=== PATIENT | female | born 1955 | race Caucasian/White ===

== ENCOUNTER 2022-01-18 11:30 | Emergency (ER) | payer OTHER ==
[~2022-01-18] VITALS: Ht 162.6 cm; Wt 81.6 kg
[2022-01-18 11:31] VITALS: BP 142/88
[2022-01-18] MEDS ORDERED: IBUP-1493 PO (12:19)
== END 2022-01-18 13:03 | disposition home or self-care (01) ==
LOC: EDH 11:30
DX: M25.561 Pain in right knee (principal); I10 Essential (primary) hypertension; J44.9 Chronic obstructive pulmonary disease, unspecified; M19.90 Unspecified osteoarthritis, unspecified site; E10.9 Type 1 diabetes mellitus without complications
CPT/HCPCS: 73562